=== PATIENT | male | born 1975 | race Caucasian/White ===

== ENCOUNTER 2021-10-02 23:09 | Emergency (ER) | payer MEDICAID, SELFPAY ==
[~2021-10-02] VITALS: Ht 175.3 cm; Wt 77.1 kg
[2021-10-03] VITALS: BP_SYST 145
--- NOTE | 2021-10-03 00:08 | NUR ---
ER at bedside examining patient.
[2021-10-03] MEDS ORDERED: KETOROLAC TROMETHAMINE 30 MG VIAL IVP ONE (00:15)
[2021-10-03] MEDS ORDERED: NACL 0.9% 1,000 ML IV ONE (00:15)
--- NOTE | 2021-10-03 00:17 | NUR ---
covid ping swab performed at tent and sent to lab
[2021-10-03] MEDS ORDERED: IVERMECTIN 3 MG TABLET PO ONE (01:15)
[2021-10-03] MEDS ORDERED: DEXAMETHASONE SOD PHOSPHATE 4 MG/ML VIAL IVP ONE (01:15)
[2021-10-03] MEDS ORDERED: CASIRIVIMAB 600 MG, IMDEVIMAB 600 MG in NS 250 ML IV ONE (01:15)
[2021-10-03] MEDS ORDERED: ED NON STOCK ORDER 1 EA MISC IV ONE (01:15)
--- NOTE | 2021-10-03 03:00 | NUR ---
Initial Contact AAOx4 NAD noted. Pt placed in ED room 7 from tent. V/s stable per bedside monitor. Inserted 18g to R AC. Pt medicated per MD order. Zinc and toradol given. Ivermectin not able to be pulled from [facility]is. Notified [employer]. Denied SOB. C/o body pain 5/10 on 0-10 scale.
[2021-10-03] MEDS ORDERED: KETOROLAC TROMETHAMINE 30 MG VIAL ONE (03:13)
[2021-10-03 04:40] LABS: BASOPHILS % (AUTO) 0.3 % (0.0-2.0); EOSINOPHILS % (AUTO) 0.1 % (0.0-4.0); HEMATOCRIT 41.2 % (36-54); HEMOGLOBIN 14.3 g/dL (14.0-18.0); LYMPHOCYTES # (AUTO) 0.3 K/uL (1.0-5.5); LYMPHOCYTES % (AUTO) 4.2 % (20.5-51.5); MEAN CORPUSCULAR HEMOGLOBIN 30 pg (27-31); MEAN CORPUSCULAR HGB CONC 35 % (32-36); MEAN CORPUSCULAR VOLUME 86 fL (79.0-98.0); MONOCYTES # (AUTO) 0.5 K/uL (0.0-1.0); MONOCYTES % (AUTO) 5.7 % (1.7-9.3); NEUTROPHILS # (AUTO) 7.2 K/uL (1.8-7.7); NEUTROPHILS % (AUTO) 89.7 % (40.0-70.0); PLATELET COUNT (AUTO) 289 K/uL (130-430); RED BLOOD CELL COUNT(AUTO) 4.82 MIL/uL (4.2-6.2); RED CELL DISTRIBUTION WIDTH 12.7 % (9.0-15.0)
[2021-10-03 04:46] LABS: CALCIUM 8.2 mg/dL (8.4-11.0); CREATININE 0.72 mg/dL (0.55-1.30); POTASSIUM 3.9 mmol/L (3.5-5.1)
[2021-10-03 04:59] LABS: ALBUMIN 2.9 g/dL (3.4-4.8); TOTAL BILIRUBIN 0.4 mg/dL (0.0-1.0)
--- NOTE | 2021-10-03 08:30 | NUR ---
VSS, pt. denies pain at this time or SOB, pt. stated was having terrible pains in BLE last night but not at this moment, denies any health hx. or medication use
--- NOTE | 2021-10-03 08:30 | NUR ---
IVF bolus started and regenmelin, POC reviewed, urinal given, breakfast tray given
--- NOTE | 2021-10-03 08:52 | NUR ---
Reviewed EMAR, medications ordered last night were not documented, called pharmacy who verified toradol, decadron and zinc were removed from pyxis for pt. will not give those at this time and Ivermectin was not avaliable at this time Dr. Maurer wants to hold Ivermectin
[2021-10-03 10:11] LABS: BILIRUBIN,URINE NEGATIVE (NEGATIVE); BLOOD, URINE NEGATIVE (NEGATIVE); CLARITY/URINE CLEAR (CLEAR); COLOR,URINE YELLOW (YELLOW); GLUCOSE,URINE NEGATIVE (NEGATIVE); KETONES,URINE 1+ (NEGATIVE); LEUKOCYTE ESTERASE ,URINE NEGATIVE (NEGATIVE); NITRITE, URINE NEGATIVE (NEGATIVE); PROTEIN URINE TRACE (NEGATIVE); UROBILINOGEN,URINE 0.2 (0.2-1.0)
[2021-10-03] MEDS ORDERED: ALBU8.5H8 INH (11:37)
[2021-10-03] MEDS ORDERED: PRED20TA PO (11:37)
[2021-10-03 11:46] VITALS: BP_SYST 123
--- NOTE | 2021-10-03 11:46 | NUR ---
Patient given written and verbal discharge instructions and verbalizes understanding. ER Dr. Maurer discussed with patient the results and treatment provided. Patient in stable condition. ID arm band removed. IV catheter removed intact and dressing applied, no active bleeding. Rx of Albuterol and prednisone given. Patient educated on pain management and to follow up with PMD. Pain Scale 0. Opportunity for questions provided and answered. Medication side effect fact sheet provided.
[2021-10-04] MEDS ORDERED: NAPR-690 PO (21:01)
[2021-10-04] MEDS ORDERED: AZIT-93 PO (21:01)
== END 2021-10-03 11:46 | disposition home or self-care (01) ==
LOC: SED 23:09
DX: U07.1 COVID-19 (principal); J12.82 Pneumonia due to coronavirus disease 2019; Z79.899 Other long term (current) drug therapy
CPT/HCPCS: 36415; 71045; 80053; 81003; 83605; 85025; 87040; 87426; 99285; J1100; J1885; J7050; M0243; Q0243

== ENCOUNTER 2021-10-04 16:22 | Emergency (ER) | payer MEDICAID, SELFPAY ==
[~2021-10-04] VITALS: Ht 175.3 cm; Wt 81.6 kg
[~2021-10-04 16:22] MED LIST: ALBU8.5H8 INH; PRED20TA PO
[2021-10-04 17:58] VITALS: BP_SYST 119
--- NOTE | 2021-10-04 17:58 | NUR ---
pt. bib sister with c/o MATSON and bilateral leg pain 04/27, was discharged yesterday after tx. for chandler, came in today with no improvement
[2021-10-04] MEDS ORDERED: NACL 0.9% 1,000 ML IV ONE (18:15)
--- NOTE | 2021-10-04 18:30 | NUR ---
ER at bedside examining patient.
--- NOTE | 2021-10-04 18:39 | NUR ---
radiolgy at bedside
[2021-10-04] MEDS ORDERED: KETOROLAC TROMETHAMINE 30 MG VIAL IVP ONE (18:45)
[2021-10-04 18:53] LABS: BASOPHILS % (AUTO) 0.1 % (0.0-2.0); HEMATOCRIT 38.3 % (36-54); HEMOGLOBIN 13.1 g/dL (14.0-18.0); LYMPHOCYTES # (AUTO) 0.8 K/uL (1.0-5.5); LYMPHOCYTES % (AUTO) 9.2 % (20.5-51.5); MEAN CORPUSCULAR HEMOGLOBIN 30 pg (27-31); MEAN CORPUSCULAR HGB CONC 34 % (32-36); MEAN CORPUSCULAR VOLUME 86 fL (79.0-98.0); MONOCYTES % (AUTO) 11.5 % (1.7-9.3); NEUTROPHILS # (AUTO) 6.7 K/uL (1.8-7.7); NEUTROPHILS % (AUTO) 79.2 % (40.0-70.0); PLATELET COUNT (AUTO) 409 K/uL (130-430); RED BLOOD CELL COUNT(AUTO) 4.44 MIL/uL (4.2-6.2); RED CELL DISTRIBUTION WIDTH 12.8 % (9.0-15.0); WHITE BLOOD COUNT (AUTO) 8.5 K/uL (4.8-10.8)
[2021-10-04 19:06] LABS: CALCIUM 7.7 mg/dL (8.4-11.0); CREATININE 0.79 mg/dL (0.55-1.30); POTASSIUM 3.7 mmol/L (3.5-5.1)
[2021-10-04 19:11] LABS: ALBUMIN 2.6 g/dL (3.4-4.8); TOTAL BILIRUBIN 0.4 mg/dL (0.0-1.0)
[2021-10-04] MEDS ORDERED: PROCHLORPERAZINE EDISYLATE 10 MG/2 ML VIAL IVP ONE (19:30)
[2021-10-04] MEDS ORDERED: DIPHENHYDRAMINE INJ 50 MG/ML VIAL IVP ONE (19:30)
[2021-10-04] MEDS ORDERED: AZIT-93 PO (21:01)
[2021-10-04] MEDS ORDERED: NAPR-690 PO (21:01)
--- NOTE | 2021-10-04 21:13 | NUR ---
Patient given written and verbal discharge instructions and verbalizes understanding. ER Dr. Blair discussed with patient the results and treatment provided. Patient in stable condition. ID arm band removed. IV catheter removed intact and dressing applied, no active bleeding. Rx of Naproxen and Azithromycin given. Patient educated on pain management and to follow up with PMD. Pain Scale 5. Opportunity for questions provided and answered. Medication side effect fact sheet provided.
[2021-10-04 21:14] VITALS: BP_SYST 99
[2021-10-04 21:23] LABS: BILIRUBIN,URINE NEGATIVE (NEGATIVE); BLOOD, URINE NEGATIVE (NEGATIVE); CLARITY/URINE CLEAR (CLEAR); COLOR,URINE YELLOW (YELLOW); GLUCOSE,URINE NEGATIVE (NEGATIVE); KETONES,URINE NEGATIVE (NEGATIVE); LEUKOCYTE ESTERASE ,URINE NEGATIVE (NEGATIVE); NITRITE, URINE NEGATIVE (NEGATIVE); PROTEIN URINE TRACE (NEGATIVE); UROBILINOGEN,URINE 0.2 (0.2-1.0)
[2021-10-04 22:41] LABS: BACTERIA,URINE RARE /HPF (None Seen); MUCUS,URINE None Seen /LPF (None Seen); RBC,URINE NONE SEEN /HPF (0-3); WBC,URINE 0-3 /HPF (0-3)
== END 2021-10-04 21:14 | disposition home or self-care (01) ==
LOC: SED 16:22
DX: U07.1 COVID-19 (principal); J12.82 Pneumonia due to coronavirus disease 2019
CPT/HCPCS: 36415; 71045; 80053; 81000; 85025; 93005; 96361; 96374; 96375; 99285; J0780; J1200; J1885

== ENCOUNTER 2024-02-12 15:29 | Emergency (ER) | payer MEDICAID ==
[~2024-02-12] VITALS: Ht 172.7 cm; Wt 82.6 kg
[~2024-02-12 15:29] MED LIST changes: +AZIT-93 PO; +NAPR-690 PO
[2024-02-12] MEDS ORDERED: CEPH250C PO (15:49)
[2024-02-12] MEDS ORDERED: DOXY100C5 PO (15:49)
[2024-02-12] MEDS: DIPHTH,PERTUSS(ACELL),TET VAC 0.5 ML VIAL (Tdap) I.M. ONE (16:07)
[2024-02-12 16:10] VITALS: BP_SYST 147; PULSE 78; RESP 16; TEMP 97.4; O2SAT 78
[2024-02-12] MEDS ORDERED: INSULIN Lispro 100 UNITS/ML, 3 ML VIAL (humaLOG) ONE (16:18)
[2024-02-12 16:23] VITALS: BP_SYST 147; PULSE 78; RESP 16; TEMP 97.4; O2SAT 78
== END 2024-02-12 16:22 | disposition home or self-care (01) ==
LOC: SED 15:29
DX: S70.362A Insect bite (nonvenomous), left thigh, initial encounter (principal); L03.116 Cellulitis of left lower limb; W57.XXXA Bitten or stung by nonvenomous insect and other nonvenomous arthropods, initial encounter; Y93.89 Activity, other specified; Y92.89 Other specified places as the place of occurrence of the external cause; Y99.8 Other external cause status
CPT/HCPCS: 90715; 99283

== ENCOUNTER 2024-07-02 03:37 | Emergency (ER) | payer SELFPAY ==
[~2024-07-02] VITALS: Ht 172.7 cm; Wt 86.2 kg
[~2024-07-02 03:37] MED LIST changes: +CEPH250C PO; +DOXY100C5 PO
[2024-07-02 03:44] VITALS: BP_SYST 147; PULSE 73; RESP 18; TEMP 97.8; O2SAT 98
[2024-07-02] MEDS ORDERED: CEPH-548 PO (04:37)
[2024-07-02] MEDS ORDERED: TRAM50TA2 PO (04:37)
[2024-07-02] MEDS ORDERED: IBUP-1969 PO (04:37)
[2024-07-02] MEDS: LIDOCAINE 1% 10 MG/ML, 20 ML MDV ID ONE (04:47)
== END 2024-07-02 05:05 | disposition home or self-care (01) ==
LOC: SED 03:37
DX: L02.411 Cutaneous abscess of right axilla (principal); Z79.899 Other long term (current) drug therapy; Z79.2 Long term (current) use of antibiotics
CPT/HCPCS: 99283